=== PATIENT | female | born 1945 | race Two or more races ===

== ENCOUNTER → 2020-01-19 | Outpatient (CLI) | payer MEDICARE | END | disposition home or self-care (01) | LOC: MSC 12:39 | PROVIDERS: ATTEND Anesthesiology | DX: M17.0 Bilateral primary osteoarthritis of knee (principal); M51.26 Other intervertebral disc displacement, lumbar region; M47.817 Spondylosis without myelopathy or radiculopathy, lumbosacral region; M62.830 Muscle spasm of back; N20.0 Calculus of kidney; E11.9 Type 2 diabetes mellitus without complications; I10 Essential (primary) hypertension; F41.8 Other specified anxiety disorders; M79.7 Fibromyalgia; M81.0 Age-related osteoporosis without current pathological fracture; Z79.899 Other long term (current) drug therapy ==